=== PATIENT | male | born 1980 | race Two or more races ===

== ENCOUNTER 2020-01-23 09:42 | Emergency (ER) | payer SELFPAY ==
[~2020-01-23] VITALS: Ht 170.2 cm; Wt 81.6 kg
[2020-01-23 09:56] VITALS: BP 141/96
== END 2020-01-23 10:26 | disposition left against medical advice (07) ==
LOC: ER 09:42
DX: J02.9 Acute pharyngitis, unspecified (principal); R68.83 Chills (without fever); Z53.21 Procedure and treatment not carried out due to patient leaving prior to being seen by health care provider